=== PATIENT | male | born 1965 | race Caucasian/White ===

== ENCOUNTER 2017-11-15 17:21 | Emergency (ER) | payer OTHER ==
[~2017-11-15] VITALS: Ht 172.7 cm; Wt 81.6 kg
[2017-11-15 18:02] LABS: ABSOLUTE BASOPHIL COUNT 0 /CUMM (0.0-0.2); ABSOLUTE EOSINOPHIL COUNT 0 /CUMM (0.0-0.7); ABSOLUTE GRANULOCYTE CT 5.1 /CUMM (1.4-6.5); ABSOLUTE LYMPH COUNT 0.6 /CUMM (1.2-3.4); ABSOLUTE MONOCYTE COUNT 0.5 /CUMM (0.10-0.60); BASOPHIL % 0.2 % (0.0-2.0); EOSINOPHIL % 0.1 % (0-5); GRANULOCYTE % 81.9 % (42.2-75.2); HEMATOCRIT 42.9 % (42-52); MEAN CORPUSCULAR HGB 32.4 PG (27.0-31.0); MEAN CORPUSCULAR HGB CONC 33.8 G/DL (33.0-37.0); MEAN CORPUSCULAR VOLUME 95.8 FL (80.0-94.0); MEAN PLATELET VOLUME 8.6 FL (7.4-10.4); PLATELET COUNT 119 /CUMM (130-400); RBC DISTRIBUTION WIDTH 13.8 % (11.5-14.5); RED BLOOD CELL CT 4.48 /CUMM (4.70-6.10); WHITE BLOOD CELL COUNT 6.2 /CUMM (4.8-10.8)
--- NOTE | 2017-11-15 19:45 | ED GENERAL ADULT ---
History of Present Illness General Chief Complaint: General Adult Stated Complaint: SENT IN BY [facility]; ETOH DETOX Source: patient Exam Limitations: no limitations Vital Signs & Intake/Output Vital Signs & Intake/Output Vital Signs Date Time Temp Pulse Resp B/P B/P Pulse O2 O2 Flow FiO2 Mean Ox Delivery Rate 11/16 0614 98.0 81 18 167/92 11/16 0609 98.0 81 20 167/92 98 Room Air 11/16 0344 98.0 78 18 159/96 11/16 0341 98.0 78 18 159/96 98 Room Air 11/16 0219 97.2 82 18 166/104 98 Room Air 11/16 0204 97.5 82 18 160/104 11/16 0158 97.5 82 18 160/104 11/16 0156 97.5 82 18 160/104 98 Room Air 11/15 2343 97.9 98 18 163/89 11/15 2341 97.9 98 18 163/89 98 Room Air 11/15 2140 97.4 94 18 158/107 11/15 2140 97.4 94 18 158/107 98 11/15 2016 Room Air 11/15 2012 98.8 105 18 164/88 11/15 2012 98.8 105 18 164/88 99 Room Air 11/15 1736 98.9 120 18 171/98 98 Room Air Room Air ED Intake and Output 11/16 0000 11/15 1200 Intake Total Output Total Balance Patient 180 lb Weight Weight Reported by Patient Measurement Method Allergies Coded Allergies: No Known Allergies (11/15/17) Triage Note: TRIAGE: 52 Y/O MALE PRESENTS FOR ADMISSION TO [facility]. WAS RELEASED FROM [facility] TODAY AT 0330AM +ETOH DAILY - DRINKS PINT OF VODKA DAILY - AT LEAST 6 MONTHS. DENIES ILLICIT DRUG USE. * HAS NEVER DETOXED BEFORE. Triage Nurses Notes Reviewed? yes Onset: Gradual Duration: week(s):, waxing and waning Timing: recent history Injury Environment: home Severity: moderate Modifying Factors: Worsens With: other (tremors w/withdrawal). Associated Symptoms: tremors HPI: 52 yo gentleman seeking alcohol detox. 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 and then I would drink on weekends.... And then I was laid off... that made my drinking increase... and now I can't stop." He notes that he has never had a seizure. His last drink was almost 24 hours ago. He drinks 1 pint a day. Lately, he notes that he has been unsteady on his feet. He went to [facility], had a benign MRI, and was discharged. He is presently feeling slightly tremulous, but is otherwise well. (Estuardo HOPKINS,Ruben Jimenez) Past History Travel History Traveled to [place] past 21 day No Medical History Any Pertinent Medical History? see below for history Neurological: NONE EENT: NONE Cardiovascular: NONE Respiratory: NONE Gastrointestinal: NONE Hepatic: NONE Renal: NONE Musculoskeletal: NONE Psychiatric: NONE Endocrine: NONE Blood Disorders: NONE Cancer(s): NONE Surgical History Surgical History: none Psychosocial History What is your primary language Sinhala Tobacco Use: Never used ETOH Use: alcoholic Illicit Drug Use: denies illicit drug use Family History Hx Contributory? No (Ruben Marte MD) Review of Systems Review of Systems Constitutional: Reports: no symptoms. EENTM: Reports: no symptoms. Respiratory: Reports: no symptoms. Cardiovascular: Reports: no symptoms. GI: Reports: no symptoms. Genitourinary: Reports: no symptoms. Musculoskeletal: Reports: no symptoms. Skin: Reports: no symptoms. Neurological/Psychological: Reports: no symptoms. Hematologic/Endocrine: Reports: no symptoms. Immunologic/Allergic: Reports: no symptoms. All Other Systems: Reviewed and Negative (Estuardo HOPKINS,Ruben Jimenez) Physical Exam Physical Exam General Appearance: well developed/nourished, mild distress Head: atraumatic, normal appearance Eyes: Bilateral: normal appearance. Ears, Nose, Throat: normal pharynx, normal ENT inspection Neck: normal inspection, supple, full range of motion Respiratory: normal breath sounds, chest non-tender, no respiratory distress, quiet respiration, lungs clear Cardiovascular: regular rate/rhythm Gastrointestinal: normal bowel sounds, soft, non-tender, no organomegaly Back: normal inspection, normal range of motion Extremities: normal inspection Neurologic/Psych: no motor/sensory deficits, awake, alert, oriented x 3, minimal tremor. Skin: intact, normal color, warm/dry Core Measures ACS in differential dx? No CVA/TIA Diagnosis: No Sepsis Present: No Sepsis Focused Exam Completed? No (Ruben Marte MD) Progress Differential Diagnoses I considered the following diagnoses in my evaluation of the patient: alcohol withdrawal. Plan of Care: Orders Procedure Date/time Status Regular Diet 11/16 B Active HEPATIC FUNCTION PANEL 11/16 0500 Complete BASIC METABOLIC PANEL 11/16 0500 Complete EKG 11/16 0415 Active EKG 11/16 0321 Active CIWA 11/15 172 Active URINE DRUG SCREEN FOR ER ONLY 11/15 172 Complete URINALYSIS 11/15 1727 Complete LIPASE 11/15 1727 Complete ETHANOL 11/15 1727 Complete COMPREHENSIVE METABOLIC PANEL 11/15 1727 Complete CBC WITHOUT DIFFERENTIAL 11/15 1727 Complete AMYLASE 11/15 172 Complete Current Medications Sig/[place] Start time Last Medication Dose Stop Time Status Admin Gabapentin 300 MG Q8 11/150 UNVr 11/16 (Neurontin) 0611 Folic Acid 1 MG DAILY 11/15 2009 UNVr 11/15 (Folic Acid) 204 Multivitamins 1 TAB DAILY 11/15 2009 UNVr 11/15 (Theragran Vitamins) 204 Thiamine HCl 100 MG DAILY 11/15 2008 UNVr 11/15 (Vitamin B1) 204 Laboratory Tests 11/16/17 0606: Anion Gap 19 H, Estimated GFR > 60, BUN/Creatinine Ratio 23.3, Glucose 88, Calcium 9.7, Total Bilirubin 1.3, Direct Bilirubin 0.4, AST 137 H, ALT 148 H, Alkaline Phosphatase 72, Total Protein 7.6, Albumin 4.6 11/15/17 2130: Urine Opiates Screen < 100.00, Methadone Screen < 40, Barbiturate Screen < 60, Ur Phencyclidine Scrn < 6.00, Amphetamines Screen < 100, U Benzodiazepines Scrn > 800 H, Urine Cocaine Screen < 50, Urine Cannabis Screen < 5.00, Urine Color YEL, Urine Clarity CLEAR, Urine pH 6.5, Ur Specific [place] 1.015, Urine Protein TRACE H, Urine Ketones >=80, Urine Nitrite NEG, Urine Bilirubin NEG@ICTO, Urine Urobilinogen 0.2, Ur Leukocyte Esterase NEG, Ur Microscopic SEDIMENT EXAMINED, Urine RBC 1-3, Ur Epithelial Cells RARE, Urine Hemoglobin TRACE-INTACT H, Urine Glucose NEG 11/15/17 1746: Anion Gap 25 H, Estimated GFR > 60, BUN/Creatinine Ratio 16.7, Glucose 97, Calcium 9.8, Total Bilirubin 1.2, AST 203 H, ALT 188 H, Alkaline Phosphatase 78, Total Protein 8.6 H, Albumin 5.2 H, Globulin 3.4, Albumin/Globulin Ratio 1.5, Amylase 135 H, Lipase 452 H, CBC w Diff NO MAN DIFF REQ, RBC 4.48 L, MCV 95.8 H, MCH 32.4 H, MCHC 33.8, RDW 13.8, MPV 8.6, Gran % 81.9 H, Lymphocytes % 10.2 L, Monocytes % 7.6, Eosinophils % 0.1, Basophils % 0.2, Absolute Granulocytes 5.1, Absolute Lymphocytes 0.6 L, Absolute Monocytes 0.5, Absolute Eosinophils 0, Absolute Basophils 0, Serum Alcohol < 10.0 Initial ED EKG: initial ekg read as "afib" which was likely artifact. EKG#2 also had artifact, but likely was nsr. Hand-Off Endorsed To: Serafin Green DO Endorsed Time: 0700 Pending: other (highwatch) Comments: pt to be evaluated for highwatch in the morning. (Estuardo HOPKINS,Ruben Jimenez) Departure Departure Disposition: STILL A PATIENT Condition: Stable Clinical Impression Primary Impression: Alcoholism Referrals: Unknown (PCP/Family) Departure Forms: Customer Survey General Discharge Information (Estuardo HOPKINS,Ruben Jimenez) Departure Comments 11/16/17 7:38 am The patient was signed out to me by Dr. Marte. He is awaiting a ride to [place] for inpatient rehabilitation for alcohol dependency. He is awake alert and oriented 3. He has no complaints. (Serafin Green DO) Critical Care Note Critical Care Note Critical Care Time: non-applicable (Estuardo HOPKINS,Ruben Jimenez)
[2017-11-16 07:59] VITALS: BP 154/90
== END 2017-11-16 07:59 ==
LOC: ERH 17:21
PROVIDERS: Physician Assistant
DX: F10.20 Alcohol dependence, uncomplicated (principal)
CPT/HCPCS: 80307; 81001; 93005; 93010; G0480; J3490